=== PATIENT | female | born 1960 | race Caucasian/White ===

== ENCOUNTER 2017-06-13 13:12 | Emergency (ER) | payer MEDICAID ==
[~2017-06-13] VITALS: Ht 170.2 cm; Wt 77.4 kg
[2017-06-13 13:18] VITALS: Ht 170.2 cm; Wt 77.4 kg
[2017-06-13 14:50] LABS: URINE BLOOD (Dip) POC 2+ (NEGATIVE)
[2017-06-13] MEDS ORDERED: ACETAMINOPHEN 325 MG TAB PO ONE (15:00)
[2017-06-13] MEDS ORDERED: RANITIDINE 150 MG TAB PO ONE (15:00)
--- NOTE | 2017-06-13 15:38 | ERD ---
ER Documentation Chief Complaint Chief Complaint Complains of back pain x 4 days HPI 57-year-old female, previously healthy, presents to the emergency department complaining of 4 days with intermittent cramping abdominal pain associated with diarrhea 2 days ago. The diarrhea is described as watery, with some mucus. No blood 4 during the last 24 hours. The patient denies fevers, chills, nausea vomiting. No urinary symptoms. No treatment attempted at this time. Possible suspicious food, no history of recent traveling. History provided by patient. ROS A 12-point review of systems was performed and negative other than presented in the history of present illness. SYSTEMIC symptoms: no fever, chills, no night sweats, no weight loss EYE symptoms: No blurred vision, no eye discharge OTOLARYNGEAL symptoms: No hearing loss. No ear pain, no sore throat CARDIOVASCULAR symptoms: No chest pain or discomfort, no palpitations. PULMONARY symptoms: No dyspnea, no cough, no wheezing. GASTROINTESTINAL symptoms: Per HPI MUSCULOSKELETAL symptoms: No arthralgias, no muscle aches. NEUROLOGY symptoms: No confusion, no syncope, no numbness or tingling. SKIN: No rashes Medications Home Meds Active Scripts Acetaminophen* (Tylenol*) 325 Mg Tablet, 1 TAB PO Q6 Y for PAIN AND OR ELEVATED TEMP, #20 TAB Prov:JOSE SAUER MD 06/13/17 Ranitidine Hcl* (Zantac*) 150 Mg Tablet, 150 MG PO BID Y for EPIGASTRIC PAIN, # 30 TAB Prov:JOSE SAUER MD 06/13/17 Ciprofloxacin Hcl* (Ciprofloxacin Hcl*) 250 Mg Tablet, 250 MG PO BID for 5 Days , #10 TAB Prov:JOSE SAUER MD 06/13/17 Allergies Allergies: Coded Allergies: No Known Allergy (Unverified , 06/13/17) PMhx/Soc Medical and Surgical Hx: pt denies Medical Hx, pt denies Surgical Hx History of Surgery: No Anesthesia Reaction: No Hx Neurological Disorder: No Hx Respiratory Disorders: No Hx Cardiac Disorders: No Hx Psychiatric Problems: No Hx Miscellaneous Medical Probl: No Hx Alcohol Use: No Hx Substance Use: No Hx Tobacco Use: No Physical Exam Vitals Vital Signs Date Time Temp Pulse Resp B/P Pulse Ox O2 Delivery O2 Flow Rate FiO2 06/13/17 13:18 99.6 95 20 120/85 97 Physical Exam Patient is in no acute distress, vital signs stable. Alert and fully oriented. EYES: PERRLA, EOMI, Sclera and conjunctiva appear normal. EARS: Canals clear, tympanic membranes WNL THROAT: Normal oropharynx. NECK: Supple, No lymphadenopathy. Full ROM without pain or tenderness. HEART: RRR, no rubs, murmurs, clicks or gallops. LUNGS: Clear to auscultation. ABDOMEN: Soft, non-tender without masses or hepatosplenomegaly. EXTREMITIES: No edema bilaterally. BACK: Full ROM, no deformity, normal back exam NEURO: Cranial nerves grossly intact, no motor or sensory deficit Results 24 hrs Laboratory Tests Test 06/13/17 14:50 Bedside Urine pH (LAB) 6.0 Bedside Urine Protein (LAB) Trace Bedside Urine Glucose (UA) Negative Bedside Urine Ketones (LAB) Negative Bedside Urine Blood 2+ Bedside Urine Nitrite (LAB) Negative Bedside Urine Leukocyte Esterase (L Negative Current Medications Medications (Trade) Dose Ordered Sig/Chiquita Route PRN Reason Start Time Stop Time Status Last Admin Dose Admin Ranitidine HCl (Zantac) 150 mg ONCE ONCE PO 06/13/17 15:00 06/13/17 15:01 DC 06/13/17 15:01 Acetaminophen (Tylenol Tab) 325 mg ONCE ONCE PO 06/13/17 15:00 06/13/17 15:01 DC 06/13/17 14:50 Procedures/MDM 57-year-old female, previously healthy, presents the emergency department complaining of colicky abdominal pain associated with diarrhea for 4 days Vital signs stable, Physical exam unremarkable, abdomen soft, nontender. Differential diagnosis include but not limited to: UTI, colitis, gastroenteritis , kidney stones, irritable bowel syndrome, inflammatory bowel syndrome, malabsorption syndrome, cholelithiasis, food intolerance, medication side effect , low suspicion for appendicitis, pancreatitis, diverticulitis, bowel obstruction. Physical examination and clinical presentation consistent most likely with infectious gastroenteritis. During the ED course the patient remained stable, no new complaints. The patient received treatment with ranitidine and Tylenol presenting overall improvement of the symptoms. Results and clinical impression discussed with patient who agrees with management. The patient is stable to be treated outpatient and will be discharged home with a Rx for ciprofloxacin for 3 days, ranitidine and Tylenol, some side effects of prescribed medications (headache, rash, nausea, vomiting, diarrhea, drowsiness, habituation, bleeding, hypertension, interactions with other medications) were reviewed. The patient was instructed to follow up with the primary care provider in the next 48h. If symptoms persist, worsen or new symptoms develop, then patient should return to the ED immediately. Instructions explained and given directly by me to the patient in Azeri with acknowledgment and demonstrated understanding. Disclaimer: Inadvertent spelling and grammatical errors are likely due to EHR/ dictation software use and do not reflect on the overall quality of patient care. Also, please note that the electronic time recorded on this note does not necessarily reflect the actual time of the patient encounter. Departure Diagnosis: Primary Impression: Abdominal pain Additional Impression: Gastroenteritis Condition: Stable Additional Instructions: Muchas regina por [facility] para gómez servicio. Esperamos que en gómez visita a la justino de emergencia gómez problema medico haya sido solucionado y que se sienta mucho mejor. Para estar seguros que gómez mejoria sigue en proceso, le pedimos el favor de hacer brodie rochelle de seguimiento medico con gómez doctor primario en los proximos 2-4 garcia. Lleve con usted estos documentos y las medicinas recetadas. Si heather sintomas empeoran y no puede mark a gómez doctor, por favor regrese a justino de emergencia. En farheen que usted no tenga un mdico de atencin primaria: Llame al mdico o clnica comunitaria de referencia que aparece abajo destiney las horas de consultorio para hacer brodie rochelle para que le vean. CLINICAS: [facility] [phone] [id number] [facility] [place] [phone] [facility] [phone] [address] [facility] [phone] [facility] [phone] [id number] [facility]. [phone] JOSE LAGUNAS MD Jun 13, 2017 15:38
[2017-06-13] MEDS ORDERED: RANI150T9 PO (15:43)
[2017-06-13] MEDS ORDERED: ACET325T33 PO (15:43)
[2017-06-13] MEDS ORDERED: CIPR-193 PO (15:43)
== END 2017-06-13 17:09 | disposition home or self-care (01) ==
LOC: FTE 13:12
DX: K52.9 Noninfective gastroenteritis and colitis, unspecified (principal)
CPT/HCPCS: 81003; Z7502; Z7610; 99283